=== PATIENT | male | born 2000 | race Two or more races ===

== ENCOUNTER 2025-02-07 12:11 | Emergency (ER) | payer BC ==
[~2025-02-07] VITALS: Ht 175.3 cm; Wt 70.3 kg
[2025-02-07 13:44] LABS: BASOPHILS % (AUTO) 0.4 % (0.0-2.0); EOSINOPHILS % (AUTO) 0.3 % (0.0-6.0); HEMATOCRIT 46 % (39-51); HEMOGLOBIN 15.6 g/dL (13.5-17.5); LYMPHOCYTES % (AUTO) 21.4 % (20.0-44.0); MEAN CORPUSCULAR HEMOGLOBIN 31 PG (26.0-33.0); MEAN CORPUSCULAR HGB CONC 34 g/dl (31.0-36.0); MEAN CORPUSCULAR VOLUME 91 fL (80-96); MONOCYTES # (AUTO) 0.6 K/uL (0.1-1.30); MONOCYTES % (AUTO) 6.1 % (2.0-12.0); NEUTROPHILS # (AUTO) 6.8 K/uL (1.8-8.9); NEUTROPHILS % (AUTO) 71.8 % (43.0-81.0); PLATELET COUNT (AUTO) 234 K/uL (150-450); RED BLOOD CELL COUNT(AUTO) 5.03 MIL/uL (4.5-6.0); RED CELL DISTRIBUTION WIDTH 13.2 % (11.5-15.0); WHITE BLOOD COUNT (AUTO) 9.4 K/uL (4.3-11.0)
[2025-02-07 13:52] LABS: AMPHETAMINE, URINE NEGATIVE (NEGATIVE); BARBITURATE, URINE NEGATIVE (NEGATIVE); BENZODIAZEPINE, URINE NEGATIVE (NEGATIVE); COCCAINE, URINE NEGATIVE (NEGATIVE); OPIATE, URINE NEGATIVE (NEGATIVE); PHENCYCLIDINE SCREEN,URINE NEGATIVE (NEGATIVE)
[2025-02-07 13:56] LABS: APPEARANCE,URINE CLEAR (CLEAR); BILIRUBIN,URINE NEGATIVE (NEGATIVE); BLOOD, URINE NEGATIVE Ery/uL (NEGATIVE); CANNABINOID, URINE POSITIVE (NEGATIVE); COLOR,URINE YELLOW (YELLOW); KETONES,URINE NEGATIVE (NEGATIVE); LEUKOCYTE ESTERASE ,URINE NEGATIVE (NEGATIVE); NITRITE, URINE NEGATIVE (NEGATIVE); PROTEIN,URINE NEGATIVE (NEGATIVE); UGLUCOSE NEGATIVE (NEGATIVE); UROBILINOGEN,URINE 0.2 EU/dL (0.2)
[2025-02-07 14:01] LABS: ALANINE AMINOTRANSFERASE 98 U/L (12-78); ALBUMIN 4.7 g/dL (3.4-5.0); ALKALINE PHOSPHATASE 85 U/L (46-116); ASPARTATE AMINOTRANSFERASE 71 U/L (15-37); BILIRUBIN,DIRECT 0.2 mg/dL (0.0-0.2); BILIRUBIN,TOTAL 0.6 mg/dL (0.2-1.0); CALCIUM, SERUM 9.8 mg/dL (8.5-10.1); CARBON DIOXIDE 29 mmol/L (21-32); CHLORIDE 102 mmol/L (98-107); CREATININE 1.1 mg/dL (0.6-1.3); GLUCOSE 101 mg/dL (74-106); POTASSIUM 4.3 mmol/L (3.5-5.1); SODIUM SERUM 137 mmol/L (136-145); TOTAL PROTEIN, SERUM 7.7 g/dL (6.4-8.2); UREA NITROGEN, BLOOD 31 mg/dL (7-18)
[2025-02-07 14:02] LABS: ACETAMINOPHEN <10 ug/ml (10-30); ALCOHOL, BLOOD < 3 mg/dL (0-10); SALICYLATE 2.5 mg/dL (2.8-20.0)
[2025-02-07] MEDS ORDERED: OLANZAPINE 10 MG VIAL IM ONE (14:25)
[2025-02-07] MEDS: OLANZAPINE 10 MG VIAL IM ONE (14:35)
[2025-02-07] MEDS ORDERED: diphenhydrAMINE HCL 50 MG/ML VIAL ONE (16:49)
[2025-02-07] MEDS ORDERED: LORAZEPAM INJ 2 MG/ML VIAL ONE (16:49)
[2025-02-07] MEDS: LORAZEPAM INJ 2 MG/ML VIAL IM ONE (16:57)
[2025-02-07] MEDS: diphenhydrAMINE HCL 50 MG/ML VIAL IM ONE (16:57)
[2025-02-07 17:00] VITALS: BP 144/82; TEMP 97.8; O2SAT 100
[2025-02-07] MEDS: NICOTINE PATCH (7MG) 7 MG PATCH.TD24 TD SCH (17:00)
== END 2025-02-07 17:32 ==
LOC: ER 12:22
DX: F30.9 Manic episode, unspecified (principal); F12.10 Cannabis abuse, uncomplicated; F25.9 Schizoaffective disorder, unspecified; F19.10 Other psychoactive substance abuse, uncomplicated; Z20.822 Contact with and (suspected) exposure to COVID-19
CPT/HCPCS: 99291; 96372; 85025; 80048; 80076; 81003; 36415; 87426; 80143; 80320; 80307; J2060; J1200; J3490; G0480